=== PATIENT | female | born 1955 | race Caucasian/White ===

== ENCOUNTER 2022-02-03 22:17 | Observation (INO) | payer MEDICARE ==
[2022-02-03 22:51] LABS: #Basophils 0.1 10x3/uL (0.0-0.2); #Eosinphils 0.5 10x3/uL (0.0-0.5); #Monocytes 1.1 10x3/uL (0.0-1.1); #Neutrophils 3.5 10x3/uL (1.5-8.4); %Basophils 0.8 % (0.0-2.0); %Eosinophils 5.7 % (0.0-6.0); %Lymphocytes 43.4 % (18.0-47.0); %Monocytes 11.5 % (0.0-10.0); %Neutrophils 38.3 % (40.0-75.0); Mean Corpuscular HGB CONC 32.6 g/dL (32.0-36.0); Mean Corpuscular Hemoglobin 29.6 pg (27.0-33.0); Mean Corpuscular Volume 90.9 fl (81.6-98.3); Platelet Count 293 10x3/uL (150-450); RBC Distribution Width 14.6 % (11.5-14.5); Red Blood Cell (RBC) Count 4.39 10x6/uL (3.90-5.03); White Blood Cell (WBC) Count 9.1 10x3/uL (3.5-10.5)
[2022-02-03 22:55] LABS: INR-International Normal Ratio 0.9; PTT 30.2 sec (22.0-33.0)
[2022-02-03 22:56] LABS: ALT (SGPT) 21 U/L (8-55); AST (SGOT) 24 U/L (5-34); Albumin 4.2 g/dL (3.4-4.8); Alkaline Phosphatase 97 U/L (40-110); Anion Gap 13 mmol/L (10-20); BUN (Urea Nitrogen) 21 mg/dL (9.8-20.1); Bilirubin, Total 0.2 mg/dL (0.2-1.2); Calc. Creatinine Clearance 0 mL/min (70-130); Calcium 9.7 mg/dL (7.8-10.44); Carbon Dioxide 29 mmol/L (23-31); Chloride 105 mmol/L (98-107); Globulin 2.6 g/dL (2.4-3.5); Glucose 87 mg/dL (80-115); Potassium 3.2 mmol/L (3.5-5.1); Protein, Total 6.8 g/dL (5.8-8.1); Sodium 144 mmol/L (136-145)
[2022-02-03] MEDS ORDERED: Aspirin 325 MG TAB ONE (23:05)
[2022-02-04] MEDS ORDERED: Atorvastatin Calcium 40 MG TAB PO SCH (02:00)
[2022-02-04] MEDS ORDERED: Clopidogrel Bisulfate 300 MG TAB PO SCH (02:00)
[2022-02-04] MEDS ORDERED: Potassium Chloride 20 MEQ TAB PO SCH (02:00)
[2022-02-04] MEDS ORDERED: Clopidogrel Bisulfate 75 MG TAB ONE ×2 (02:25→07:13)
[2022-02-04] MEDS ORDERED: Potassium Chloride 20 MEQ TAB ONE (02:26)
[2022-02-04 03:21] LABS: #Eosinphils 0.3 10x3/uL (0.0-0.5); #Monocytes 0.6 10x3/uL (0.0-1.1); #Neutrophils 3.8 10x3/uL (1.5-8.4); %Basophils 0.6 % (0.0-2.0); %Eosinophils 4.8 % (0.0-6.0); %Lymphocytes 31.3 % (18.0-47.0); %Monocytes 9.1 % (0.0-10.0); %Neutrophils 53.9 % (40.0-75.0); Hemoglobin 12.1 g/dL (12.0-15.5); Mean Corpuscular HGB CONC 33.2 g/dL (32.0-36.0); Mean Corpuscular Hemoglobin 30.1 pg (27.0-33.0); Mean Corpuscular Volume 90.5 fl (81.6-98.3); Mean Platelet Volume 9.7 fl (7.4-10.4); Platelet Count 243 10x3/uL (150-450); RBC Distribution Width 14.6 % (11.5-14.5); Red Blood Cell (RBC) Count 4.02 10x6/uL (3.90-5.03); White Blood Cell (WBC) Count 6.9 10x3/uL (3.5-10.5)
[2022-02-04 03:59] LABS: Anion Gap 15 mmol/L (10-20); BUN (Urea Nitrogen) 18 mg/dL (9.8-20.1); Calc. Creatinine Clearance 0 mL/min (70-130); Calcium 9.1 mg/dL (7.8-10.44); Carbon Dioxide 26 mmol/L (23-31); Chloride 106 mmol/L (98-107); Glucose 96 mg/dL (80-115); Magnesium 1.9 mg/dL (1.6-2.6); Potassium 3.7 mmol/L (3.5-5.1); Sodium 143 mmol/L (136-145)
[2022-02-04 04:31] LABS: Cardiac Risk 2.6 (Less than 4.5); Cholesterol 135 mg/dl (< 200 Desired); HDL Cholesterol 52 mg/dL (>60 Neg Risk); LDL Cholesterol, Calculated 70 mg/dL; Triglycerides 63 mg/dL (Less than 150)
[2022-02-04] MEDS: Enoxaparin Sodium 40 MG/0.4 ML SYRINGE SC SCH (07:11)
[2022-02-04] MEDS: Clopidogrel Bisulfate 75 MG TAB PO SCH (07:11)
[2022-02-04] MEDS: Aspirin 81 mg Enteric Coated Tablet PO SCH (07:11)
[2022-02-04] MEDS ORDERED: Aspirin Chewable 81 MG TAB ONE (07:13)
[2022-02-04] MEDS ORDERED: Enoxaparin Sodium 40 MG/0.4 ML SYRINGE ONE (07:14)
[2022-02-04 12:19] VITALS: BMI 26.8
[2022-02-04 14:22] LABS: Hemoglobin A1c 5.3 % (4.0-6.0)
[2022-02-04 14:24] LABS: Hemoglobin A1c 5.3 % (4.0-6.0)
[2022-02-04] MEDS: Atorvastatin Calcium 40 MG TAB PO SCH ×2 (20:51→22:09)
[2022-02-04] MEDS ORDERED: Simvastatin 10 MG TAB PO SCH (21:00)
[2022-02-04] MEDS ORDERED: diphenhydrAMINE 25 MG CAP PO SCH (21:00)
[2022-02-05 04:07] LABS: Troponin I Less than 0.010 ng/mL (< 0.028)
[2022-02-05] MEDS ORDERED: Levothyroxine Sodium 50 MCG TAB PO SCH (06:00)
[2022-02-05 07:46] VITALS: BP 127/74; TEMP 97.7
[2022-02-05] MEDS: Clopidogrel Bisulfate 75 MG TAB PO SCH (08:13)
[2022-02-05] MEDS: Aspirin 81 mg Enteric Coated Tablet PO SCH (08:13)
[2022-02-05] MEDS: Enoxaparin Sodium 40 MG/0.4 ML SYRINGE SC SCH (08:13)
[2022-02-05] MEDS ORDERED: Bupropion 150 MG XL TAB PO SCH (09:00)
== END 2022-02-05 09:01 | disposition home or self-care (01) ==
LOC: CSHERS 22:17 → INTOOBSV 23:10 → CSHERHOLD 23:10 → UNDOADMIN 02-04 00:41 → CSHERHOLD 02-04 00:41 → CSHICU 02-04 12:00
PROVIDERS: ADMIT Family Medicine; ATTEND Family Medicine
DX: G45.9 Transient cerebral ischemic attack, unspecified (principal); E03.9 Hypothyroidism, unspecified; E78.5 Hyperlipidemia, unspecified; I10 Essential (primary) hypertension; E87.6 Hypokalemia; Z87.891 Personal history of nicotine dependence; Z79.890 Hormone replacement therapy; Z79.899 Other long term (current) drug therapy; Z20.822 Contact with and (suspected) exposure to COVID-19
CPT/HCPCS: 70450; 70551; 80048; 80053; 80061; 82550; 82962; 83036; 83735; 84443; 84484 ×2; 85025 ×2; 85610; 85730; 93005 ×2; 93880; 97139; U0003; U0005; 36415; 36416; 93010; 96372; G0378; J1650

== ENCOUNTER 2022-02-06 16:42 | Inpatient (IN) | payer MEDICARE ==
[2022-02-06 17:22] LABS: #Basophils 0.1 10x3/uL (0.0-0.2); #Eosinphils 0.3 10x3/uL (0.0-0.5); #Neutrophils 4.1 10x3/uL (1.5-8.4); %Basophils 0.9 % (0.0-2.0); %Eosinophils 3.2 % (0.0-6.0); %Monocytes 11.1 % (0.0-10.0); %Neutrophils 47.5 % (40.0-75.0); Hemoglobin 12.5 g/dL (12.0-15.5); Mean Corpuscular HGB CONC 33.2 g/dL (32.0-36.0); Mean Corpuscular Hemoglobin 29.6 pg (27.0-33.0); Mean Corpuscular Volume 89.1 fl (81.6-98.3); Mean Platelet Volume 9.7 fl (7.4-10.4); Platelet Count 280 10x3/uL (150-450); RBC Distribution Width 14.9 % (11.5-14.5); Red Blood Cell (RBC) Count 4.23 10x6/uL (3.90-5.03); White Blood Cell (WBC) Count 8.6 10x3/uL (3.5-10.5)
[2022-02-06 17:33] LABS: ALT (SGPT) 19 U/L (8-55); AST (SGOT) 25 U/L (5-34); Albumin 4.1 g/dL (3.4-4.8); Alkaline Phosphatase 90 U/L (40-110); Anion Gap 15 mmol/L (10-20); BUN (Urea Nitrogen) 12 mg/dL (9.8-20.1); Bilirubin, Total 0.3 mg/dL (0.2-1.2); Calc. Creatinine Clearance 0 mL/min (70-130); Calcium 9.4 mg/dL (7.8-10.44); Carbon Dioxide 25 mmol/L (23-31); Chloride 108 mmol/L (98-107); Globulin 2.7 g/dL (2.4-3.5); Glucose 76 mg/dL (80-115); Potassium 3.9 mmol/L (3.5-5.1); Protein, Total 6.8 g/dL (5.8-8.1); Sodium 144 mmol/L (136-145)
[2022-02-06 17:39] LABS: Bilirubin Neg (Negative); Blood, Urine 10 (Negative); Clarity Clear (Clear); Glucose, Urine (Dipstick) Normal (Negative); Ketone, Urine Negative (Negative); Leukocyte 100 (Negative); Nitrite Negative (Negative); Protein, Urine (Dipstick) Negative (Neg-Trace); Urobilinogen Normal mg/dL (Less than 2)
[2022-02-06 17:46] LABS: Bacteria/HPF None Seen HPF (None Seen); RBC/HPF 0-3 HPF (0-3)
[2022-02-06] MEDS ORDERED: Clopidogrel Bisulfate 75 MG TAB PO SCH (20:15)
[2022-02-06] MEDS ORDERED: Atorvastatin Calcium 20 MG TAB PO SCH (21:00)
[2022-02-06 22:27] VITALS: BMI 26.9
[2022-02-07 04:32] LABS: #Basophils 0.1 10x3/uL (0.0-0.2); #Eosinphils 0.4 10x3/uL (0.0-0.5); #Monocytes 0.7 10x3/uL (0.0-1.1); #Neutrophils 3.6 10x3/uL (1.5-8.4); %Basophils 0.9 % (0.0-2.0); %Eosinophils 4.8 % (0.0-6.0); %Monocytes 9.1 % (0.0-10.0); %Neutrophils 44.8 % (40.0-75.0); Mean Corpuscular Hemoglobin 29.3 pg (27.0-33.0); Mean Corpuscular Volume 91.7 fl (81.6-98.3); Mean Platelet Volume 9.9 fl (7.4-10.4); Platelet Count 271 10x3/uL (150-450); RBC Distribution Width 14.9 % (11.5-14.5); Red Blood Cell (RBC) Count 4.09 10x6/uL (3.90-5.03); White Blood Cell (WBC) Count 7.9 10x3/uL (3.5-10.5)
[2022-02-07 04:52] LABS: Anion Gap 13 mmol/L (10-20); BUN (Urea Nitrogen) 17 mg/dL (9.8-20.1); Calc. Creatinine Clearance 92 mL/min (70-130); Calcium 8.9 mg/dL (7.8-10.44); Carbon Dioxide 26 mmol/L (23-31); Chloride 108 mmol/L (98-107); Glucose 87 mg/dL (80-115); Potassium 3.7 mmol/L (3.5-5.1); Sodium 143 mmol/L (136-145)
[2022-02-07 05:00] LABS: Syphilis Antibody Nonreactive (Nonreactive); Syphilis Antibody Index 0.07 S/CO (<1.00 Non-Reactive)
[2022-02-07] MEDS ORDERED: Thyroid 60 MG TAB PO SCH (09:00)
[2022-02-07] MEDS ORDERED: Bupropion 150 MG XL TAB PO SCH (09:00)
[2022-02-07] MEDS ORDERED: Clopidogrel Bisulfate 75 MG TAB PO SCH (09:00)
[2022-02-07] MEDS ORDERED: Enoxaparin Sodium 40 MG/0.4 ML SYRINGE SC SCH (09:00)
[2022-02-07] MEDS ORDERED: Aspirin 81 mg Enteric Coated Tablet PO SCH ×2 (09:00)
[2022-02-07] MEDS ORDERED: Iopamidol 370 76% 100 ML VIAL ONE (14:28)
[2022-02-07 16:53] VITALS: BP 148/70; TEMP 98.1
[2022-02-07 17:22] LABS: SARS-CoV-2 NAA Rapid Test Not Detected (NotDetected)
[2022-02-07] MEDS ORDERED: niMODipine 30 MG CAP PO SCH (18:00)
[2022-02-07] MEDS ORDERED: NIFEdipine 10 MG CAP PO SCH (21:00)
[2022-02-08] MEDS ORDERED: Thyroid 60 MG TAB PO SCH (06:00)
[2022-02-08 16:49] LABS: ANA Symphony (Qualitative) Negative (Negative); ANA Symphony (Quantitative) 0.2 Ratio (< 0.7 Negative); dsDNA IgG Antibody 0.9 IU/mL (<10 Negative)
[2022-02-08 18:21] LABS: dsDNA IgG Antibody 0.9 IU/mL (<10 Negative)
== END 2022-02-07 21:02 | disposition short-term general hospital (02) | DRG 66 ==
LOC: CSHERS 16:42 → CSHTELE 22:02 → OBSVTOIN 02-07 16:47 → CSHIMCU 02-07 17:33
PROVIDERS: ADMIT Family Medicine; ATTEND Internal Medicine
DX: I60.9 Nontraumatic subarachnoid hemorrhage, unspecified (principal); Z20.822 Contact with and (suspected) exposure to COVID-19; E03.9 Hypothyroidism, unspecified; E78.5 Hyperlipidemia, unspecified; E06.3 Autoimmune thyroiditis; I10 Essential (primary) hypertension; G83.21 Monoplegia of upper limb affecting right dominant side; R29.700 NIHSS score 0; R29.810 Facial weakness; Z79.890 Hormone replacement therapy; Z79.82 Long term (current) use of aspirin; Z79.899 Other long term (current) drug therapy; Z87.891 Personal history of nicotine dependence; Z82.49 Family history of ischemic heart disease and other diseases of the circulatory system; Z82.3 Family history of stroke
CPT/HCPCS: 36416; 70496; 70498; 80048; 80053; 81003; 81015; 83735; 84443; 85025; 85652; 86038; 86140; 86225; 86780; 93005; 93306; 96372; G0378; J1650; Q9967; U0002

== ENCOUNTER 2022-11-18 13:46 | Outpatient (CLI) | payer OTHER | END 2022-11-18 13:47 | disposition home or self-care (01) | LOC: CSHMAMMO 13:46 | PROVIDERS: ATTEND Family Medicine | DX: Z12.31 Encounter for screening mammogram for malignant neoplasm of breast (principal); Z80.3 Family history of malignant neoplasm of breast | CPT/HCPCS: 77063; 77067 ==

== ENCOUNTER 2022-12-22 08:27 | Outpatient (CLI) | payer OTHER ==
[2022-12-22] MEDS ORDERED: Iopamidol 370 76% 100 ML VIAL ONE (09:49)
== END 2022-12-22 08:28 | disposition home or self-care (01) ==
LOC: CSHCT 08:27
PROVIDERS: ATTEND Psychiatry & Neurology Neurology
DX: I72.0 Aneurysm of carotid artery (principal)
CPT/HCPCS: 70496; 82565

== ENCOUNTER 2023-07-19 15:06 | Outpatient (CLI) | payer OTHER | END 2023-07-19 15:07 | disposition home or self-care (01) | LOC: CSHULT 15:06 | PROVIDERS: ATTEND Family Medicine | DX: E03.9 Hypothyroidism, unspecified (principal); E04.1 Nontoxic single thyroid nodule | CPT/HCPCS: 76536 ==

== ENCOUNTER 2025-08-14 07:24 | Outpatient (CLI) | payer OTHER | END 2025-08-14 07:25 | disposition home or self-care (01) | LOC: CSHULT 07:24 | PROVIDERS: ATTEND Family Medicine | DX: R31.9 Hematuria, unspecified (principal); K86.9 Disease of pancreas, unspecified | CPT/HCPCS: 76700; 93976 ==